=== PATIENT | male | born 1965 | race Caucasian/White ===

== ENCOUNTER 2017-04-08 20:29 | Emergency (ER) | payer OTHER ==
[2017-04-08] MEDS ORDERED: CEPHALEXIN 500 MG CAPSULE PO ONE (23:34)
--- NOTE | 2017-04-08 23:36 | ER Document Report ---
HPI - HPI Patient complains to provider of: Left index finger injury Pain Level: 2 Context: Patient is a 51-year-old male that comes emergency department for chief complaint of accidental laceration to the tip of the finger pad of the left ring finger. The patient was working a mandolin slicer when he accidentally cut his finger. Patient denies any other injuries. Patient has diabetes, patient is on prednisone, however patient's tetanus is up-to-date. takes aspirin but is not on a blood thinner otherwise. - DERM Skin Color: Normal, [place] Past Medical History - General Information source: Patient - Social History Smoking Status: Never Smoker Frequency of alcohol use: None Lives with: Family Family History: Reviewed & Not Pertinent Patient has suicidal ideation: No Patient has homicidal ideation: No - Past Medical History Cardiac Medical History: Reports: Hx Hypercholesterolemia, Hx Hypertension Denies: Hx Coronary Artery Disease, Hx Heart Attack Pulmonary Medical History: Denies: Hx Asthma, Hx Bronchitis, Hx COPD, Hx Pneumonia Neurological Medical History: Denies: Hx Cerebrovascular Accident, Hx Seizures Endocrine Medical History: Reports: Hx Diabetes Mellitus Type 2 Renal/ Medical History: Denies: Hx Peritoneal Dialysis Musculoskeltal Medical History: Denies Hx Arthritis Past Surgical History: Reports: Hx Orthopedic Surgery - left knee, Hx Thyroid Surgery - cyst removed - Immunizations Hx Diphtheria, Pertussis, Tetanus Vaccination: Yes Vertical Provider Document - CONSTITUTIONAL General Appearance: WD/WN, No Apparent Distress - INFECTION CONTROL TRAVEL OUTSIDE OF THE [place] IN LAST 30 DAYS: No - HEENT HEENT: Atraumatic, Normocephalic - NECK Neck: Normal Inspection - RESPIRATORY Respiratory: Breath Sounds Normal, Other O2 Sat by Pulse Oximetry: 98 - CARDIOVASCULAR Cardiovascular: Regular Rate, Regular Rhythm, Tachycardia - GI/ABDOMEN Gastrointestinal: Abdomen Soft, Abdomen Non-Tender - MUSCULOSKELETAL/EXTREMETIES Musculoskeletal/Extremeties: Tender - There is a superficial avulsion injury over the medial aspect of the fingertips of the left fourth digit. Normal capillary refill, normal sensation, normal range of motion of the finger, easily explored and noted to be superficial, not down to the bone. Bleeding steadily. Course - Re-evaluation Re-evalutation: Avulsion injury of the finger pad appears to be superficial, I did discuss a x- ray of this to be double sure, patient declines. Does not appear to be even close to near down to the bone. Unfortunately the area continued to bleed despite the additional dressings. These had to be removed, I had to apply silver nitrate to the capillary beds to stop the bleeding before this was redressed using Xeroform, [place], [place] wrap. Wound cleaned thoroughly before dressing. Because of dirty knife, diabetes, medication suppressing immune system, patient will be covered with Keflex. Discussed wound care, discussed return precautions, patient states understanding and agreement - Vital Signs Vital signs: Temp Pulse Resp BP Pulse Ox 98.6 F 115 H 16 150/91 H 98 04/08/17 20:38 04/08/17 20:38 04/08/17 20:38 04/08/17 20:38 04/08/17 20:38 Discharge - Discharge Clinical Impression: Avulsion of finger tip Qualifiers: Encounter type: initial encounter Qualified Code(s): S61.209A - Unspecified open wound of unspecified finger without damage to nail, initial encounter Condition: Stable Disposition: HOME, SELF-CARE Additional Instructions: I recommend keeping the current Xeroform (yellow) dressing on for the next 48 hours, afterwards remove, clean gently with soap and water, apply antibiotic dressing and Band-Aid to the area. Take the Keflex antibiotic as prophylaxis. Follow-up with your primary care. Return immediately for any concerning or worsening symptoms including redness, swelling, discolored drainage, fever, or any other concerning symptoms. Prescriptions: Cephalexin Monohydrate [Keflex 500 mg Capsule] 500 mg PO QID #28 capsule Referrals: URBANO HO PA-C [Primary Care Provider] - Follow up as needed
[2017-04-09 01:08] VITALS: BP 142/88
== END 2017-04-09 01:00 | disposition home or self-care (01) ==
LOC: ER 20:29
DX: S69.92XA Unspecified injury of left wrist, hand and finger(s), initial encounter (principal); W27.4XXA Contact with kitchen utensil, initial encounter; E78.00 Pure hypercholesterolemia, unspecified; I10 Essential (primary) hypertension; E11.9 Type 2 diabetes mellitus without complications
CPT/HCPCS: 99283